=== PATIENT | female | born 1980 | race Caucasian/White ===

== ENCOUNTER 2025-09-14 08:11 | Outpatient (CLI) | payer MEDICAID ==
--- NOTE | 2025-09-14 21:00 | [facility]URO CONSULT REPORT ---
Page Neuro Procedure Note Page Neuro Procedure Note Consult Page EEG Note # Demographics Type of EEG Read: - Routine EEG - video Patient Location: Outpatient First Name: Goldie Last Name: Nikhil Date of : 1980 Age: 45 Gender: Female Facility: [facility] Time of Initial Page (): 09/14/2025 09:48 First Contact with Site ( Time): 09/14/2025 09:48 # EEG Interpretation Start Time of EEG Read (): 09/14/2025 08:50 Stop Time of EEG Read (): 09/14/2025 09:11 Duration: 0h 21m Technical Details: - The EEG electrodes were placed using the standard International 10-20 system of electrode placement. Video and an accessory EKG lead were used during the course of this study. - This study was recorded using the [employer] EEG software Indication: Possible seizure # Description Photic Stimulation: Performed Hyperventilation: NOT performed Phases Captured: - awake Symmetry: symmetric Posterior Dominant Rhythm: The record is continuous, of normal amplitude and bilaterally symmetrical. There is a well-developed posterior dominant rhythm at 12 Hz. There is a moderate amount of diffuse low amplitude 15-25 Hz beta activity and an appropriate amount of 4-7 Hz theta activity during wakefulness. No significant <4 Hz delta activity is present during wakefulness. Amplitude: normal Reactivity: yes Variability: yes Continuity: continuous EKG: NSR # Abnormalities Epileptiform Abnormalities: - NOT present Focal Slowing: no Seizure: - NOT present No push button events # Impression Impression: normal # Clinical Correlation Clinical Correlation: A normal EEG does not exclude nor support the diagnosis of epilepsy. Additional Comments: Clinical correlation is recommended # Demographics First Name: Goldie Last Name: Nikhil Facility: [facility] SONYA SILVA MD Sep 14, 2025 21:00
== END 2025-09-14 23:59 | disposition home or self-care (01) ==
LOC: RAD 08:11
PROVIDERS: ATTEND Physician Assistant
DX: G40.909 Epilepsy, unspecified, not intractable, without status epilepticus (principal); R41.3 Other amnesia
CPT/HCPCS: 95816